=== PATIENT | female | born 1995 | race Caucasian/White ===

== ENCOUNTER 2017-08-09 06:57 | Emergency (ER) | payer SELFPAY ==
[~2017-08-09] VITALS: Ht 172.7 cm; Wt 117.9 kg
[~2017-08-09 06:57] MED LIST: Motrin,Rufen800 MG PO; Orphenadrine C100 MG PO; PEPCID20 MG PO; Zofran4 MG PO
[2017-08-09 07:34] LABS: BILIRUBIN NEGATIVE (NEGATIVE); BLOOD TRACE-INTACT (NEGATIVE); CLARITY CLEAR (CLEAR); COLOR YELLOW (YELLOW); GLUCOSE NEGATIVE (NEGATIVE); KETONE NEGATIVE (NEGATIVE); LEUKO ESTERASE NEGATIVE (NEGATIVE); NITRITE NEGATIVE (NEGATIVE); SPECIFIC GRAVITY <= 1.005 (1.005-1.030); UROBILINOGEN 0.2 E.U./dl (0.2-1.0)
[2017-08-09 07:39] LABS: BASO % 0.4 % (0.0-1.0); EOS # 0.1 10*3/uL (0.0-0.4); EOS % 1.7 % (1.0-4.0); HEMATOCRIT 37.4 % (37.0-47.0); HEMOGLOBIN 12.3 g/dl (12.0-16.0); LYMPH # 2.5 10*3/uL (1.3-4.4); LYMPH % 30.2 % (27.0-41.0); MEAN CELL VOLUME 84.2 fl (81.0-99.0); MEAN CORPUSCULAR HGB 27.7 pg (27.0-31.0); MEAN CORPUSCULAR HGB CONC 32.9 g/dl (33.0-37.0); MEAN PLATELET VOLUME 9.3 fl (9.6-12.3); MONO # 0.7 10*3/uL (0.1-1.0); MONO % 8.7 % (3.0-9.0); NEUT # 4.9 10*3/uL (2.3-7.9); NEUT % 58.8 % (47.0-73.0); PLATELET COUNT AUTOMATED 330 10*3/uL (130-400); RED BLOOD COUNT 4.44 10*6/uL (4.10-5.10); RED CELL DISTRI WIDTH 12.7 % (0-14.5); WHITE BLOOD COUNT 8.3 10*3/uL (4.8-10.8)
[2017-08-09 07:44] LABS: BACTERIA TRACE; WBC 0-2 wbc/hpf (0-5)
[2017-08-09 07:56] LABS: ALBUMIN 3.8 gm/dl (3.1-4.5); ALKALINE PHOSPHATASE 120 U/L (45-117); BUN 10 mg/dl (7-24); CHLORIDE 105 mmol/L (98-107); POTASSIUM 3.8 mmol/L (3.5-5.1); SGOT/AST 17 IU/L (3-35); SGPT/ALT 28 U/L (12-78); SODIUM 139 mmol/L (136-145); TOTAL PROTEIN 8.5 gm/dL (6.4-8.2)
[2017-08-09] MEDS ORDERED: Zofran4 MG PO (08:58)
== END 2017-08-09 10:12 | disposition home or self-care (01) ==
LOC: ED 06:57
PROVIDERS: Emergency Medicine
DX: B34.9 Viral infection, unspecified (principal); R11.2 Nausea with vomiting, unspecified; R42 Dizziness and giddiness; R50.9 Fever, unspecified

== ENCOUNTER 2017-11-14 15:32 | Emergency (ER) | payer OTHER ==
[~2017-11-14] VITALS: Wt 127.0 kg
[2017-11-14] MEDS ORDERED: PRAZOSIN HCL1 MG PO (15:38)
[2017-11-14] MEDS ORDERED: SERTRALINE HYDR50 MG PO (15:38)
[2017-11-14] MEDS ORDERED: TRAZODONE50 MG PO (15:39)
[2017-11-14 16:23] LABS: EOS % 0.3 % (1.0-4.0); HEMATOCRIT 35.7 % (37.0-47.0); HEMOGLOBIN 11.8 g/dl (12.0-16.0); LYMPH # 0.9 10*3/uL (1.3-4.4); LYMPH % 25.1 % (27.0-41.0); MEAN CORPUSCULAR HGB 27.4 pg (27.0-31.0); MEAN CORPUSCULAR HGB CONC 33.1 g/dl (33.0-37.0); MEAN PLATELET VOLUME 9.2 fl (9.6-12.3); MONO # 0.6 10*3/uL (0.1-1.0); MONO % 16.2 % (3.0-9.0); NEUT # 2.2 10*3/uL (2.3-7.9); NEUT % 58.1 % (47.0-73.0); PLATELET COUNT AUTOMATED 259 10*3/uL (130-400); RED CELL DISTRI WIDTH 12.7 % (0-14.5); WHITE BLOOD COUNT 3.7 10*3/uL (4.8-10.8)
[2017-11-14 16:39] LABS: ALBUMIN 3.7 gm/dl (3.1-4.5); ALKALINE PHOSPHATASE 107 U/L (45-117); BUN 9 mg/dl (7-24); CHLORIDE 105 mmol/L (98-107); CREATININE 0.75 mg/dL (0.55-1.02); POTASSIUM 3.6 mmol/L (3.5-5.1); SGOT/AST 22 IU/L (3-35); SGPT/ALT 28 U/L (12-78); SODIUM 136 mmol/L (136-145); TOTAL PROTEIN 8.3 gm/dL (6.4-8.2)
[2017-11-14 17:10] LABS: BILIRUBIN NEGATIVE (NEGATIVE); BLOOD NEGATIVE (NEGATIVE); CLARITY CLEAR (CLEAR); COLOR YELLOW (YELLOW); GLUCOSE NEGATIVE (NEGATIVE); KETONE NEGATIVE (NEGATIVE); LEUKO ESTERASE NEGATIVE (NEGATIVE); NITRITE NEGATIVE (NEGATIVE); PH 5.5 (5.0-9.0); SPECIFIC GRAVITY 1.025 (1.005-1.030); UROBILINOGEN 0.2 E.U./dl (0.2-1.0)
[2017-11-14 17:18] LABS: BACTERIA 1+; MUCOUS TRACE; RBC 0-2 rbc/hpf (0-2)
[2017-11-14] MEDS ORDERED: ZOFRAN ODT4 MG SL (17:47)
[2017-11-14] MEDS ORDERED: TAMIFLU 75MG CA75 MG PO (17:47)
== END 2017-11-14 17:51 | disposition home or self-care (01) ==
LOC: ED 15:32
PROVIDERS: Emergency Medicine
DX: K52.9 Noninfective gastroenteritis and colitis, unspecified (principal); J10.1 Influenza due to other identified influenza virus with other respiratory manifestations; Z79.899 Other long term (current) drug therapy

== ENCOUNTER 2018-01-14 06:16 | Emergency (ER) | payer OTHER ==
[~2018-01-14] VITALS: Ht 170.1 cm; Wt 119.3 kg
[~2018-01-14 06:16] MED LIST changes: +PRAZOSIN HCL1 MG PO; +SERTRALINE HYDR50 MG PO; +TAMIFLU 75MG CA75 MG PO; +TRAZODONE50 MG PO; +ZOFRAN ODT4 MG SL
[2018-01-14] MEDS ORDERED: Zofran4 MG SL (06:22)
== END 2018-01-14 06:44 | disposition home or self-care (01) ==
LOC: ED 06:16
DX: R11.2 Nausea with vomiting, unspecified (principal); R14.0 Abdominal distension (gaseous); Z79.899 Other long term (current) drug therapy

== ENCOUNTER → 2018-04-07 | Outpatient (CLI) | payer OTHER ==
[~2018-04-07] MED LIST changes: +Zofran4 MG SL
== END | disposition home or self-care (01) ==
LOC: US 15:43
DX: N93.9 Abnormal uterine and vaginal bleeding, unspecified (principal)

== ENCOUNTER 2018-08-25 11:25 | Emergency (ER) | payer OTHER ==
[~2018-08-25] VITALS: Ht 170.1 cm; Wt 124.7 kg
[2018-08-25 13:19] LABS: BASO % 0.3 % (0.0-1.0); EOS # 0.1 10*3/uL (0.0-0.4); EOS % 1.3 % (1.0-4.0); HEMATOCRIT 36.3 % (37.0-47.0); HEMOGLOBIN 11.6 g/dl (12.0-16.0); LYMPH # 2.6 10*3/uL (1.3-4.4); LYMPH % 25.2 % (27.0-41.0); MEAN CELL VOLUME 85.2 fl (81.0-99.0); MEAN CORPUSCULAR HGB 27.2 pg (27.0-31.0); MEAN PLATELET VOLUME 9.1 fl (9.6-12.3); MONO # 0.6 10*3/uL (0.1-1.0); MONO % 5.7 % (3.0-9.0); NEUT # 6.8 10*3/uL (2.3-7.9); NEUT % 67.2 % (47.0-73.0); PLATELET COUNT AUTOMATED 356 10*3/uL (130-400); RED BLOOD COUNT 4.26 10*6/uL (4.10-5.10); RED CELL DISTRI WIDTH 12.8 % (0-14.5); WHITE BLOOD COUNT 10.2 10*3/uL (4.8-10.8)
[2018-08-25 13:36] LABS: ALBUMIN 3.3 gm/dl (3.1-4.5); ALKALINE PHOSPHATASE 106 U/L (45-117); BUN 13 mg/dl (7-24); CHLORIDE 106 mmol/L (98-107); CREATININE 0.59 mg/dL (0.55-1.02); POTASSIUM 4.1 mmol/L (3.5-5.1); SGOT/AST 22 IU/L (3-35); SGPT/ALT 29 U/L (12-78); SODIUM 135 mmol/L (136-145); TOTAL PROTEIN 7.9 gm/dL (6.4-8.2)
[2018-08-25] MEDS ORDERED: ROBITUSSIN DM 105 ML PO (13:57)
[2018-08-25] MEDS ORDERED: PREDNISONE50 MG PO (13:57)
[2018-08-25] MEDS ORDERED: AUGMENTIN 875875 MG PO (13:57)
== END 2018-08-25 14:12 | disposition home or self-care (01) ==
LOC: ED 11:25
PROVIDERS: Nurse Practitioner Family
DX: J20.9 Acute bronchitis, unspecified (principal); Z79.899 Other long term (current) drug therapy

== ENCOUNTER 2018-10-29 18:16 | Emergency (ER) | payer OTHER ==
[~2018-10-29] VITALS: Ht 170.1 cm; Wt 129.7 kg
[~2018-10-29 18:16] MED LIST changes: +AUGMENTIN 875875 MG PO; +PREDNISONE50 MG PO; +ROBITUSSIN DM 105 ML PO
[2018-10-29 18:38] LABS: BASO % 0.3 % (0.0-1.0); EOS # 0.2 10*3/uL (0.0-0.4); HEMOGLOBIN 12.3 g/dl (12.0-16.0); LYMPH # 2.8 10*3/uL (1.3-4.4); LYMPH % 29.5 % (27.0-41.0); MEAN CELL VOLUME 82.4 fl (81.0-99.0); MEAN CORPUSCULAR HGB 26.7 pg (27.0-31.0); MEAN CORPUSCULAR HGB CONC 32.4 g/dl (33.0-37.0); MEAN PLATELET VOLUME 8.7 fl (9.6-12.3); MONO # 0.6 10*3/uL (0.1-1.0); MONO % 6.1 % (3.0-9.0); NEUT # 5.9 10*3/uL (2.3-7.9); NEUT % 61.8 % (47.0-73.0); PLATELET COUNT AUTOMATED 405 10*3/uL (130-400); RED BLOOD COUNT 4.61 10*6/uL (4.10-5.10); RED CELL DISTRI WIDTH 12.9 % (0-14.5); WHITE BLOOD COUNT 9.6 10*3/uL (4.8-10.8)
[2018-10-29 18:50] LABS: ACT PARTIAL THROMBO TIME 27.9 SECONDS (20.8-31.5)
[2018-10-29 18:52] LABS: ALBUMIN 3.5 gm/dl (3.1-4.5); ALKALINE PHOSPHATASE 101 U/L (45-117); BUN 13 mg/dl (7-24); CHLORIDE 107 mmol/L (98-107); CREATININE 0.75 mg/dL (0.55-1.02); LIPASE 92 U/L (73-393); POTASSIUM 3.5 mmol/L (3.5-5.1); SGOT/AST 21 IU/L (3-35); SGPT/ALT 25 U/L (12-78); SODIUM 137 mmol/L (136-145); TOTAL PROTEIN 8.4 gm/dL (6.4-8.2)
[2018-10-29 18:57] LABS: BILIRUBIN NEGATIVE (NEGATIVE); BLOOD TRACE-INTACT (NEGATIVE); CLARITY SL CLOUDY (CLEAR); COLOR YELLOW (YELLOW); GLUCOSE NEGATIVE (NEGATIVE); KETONE NEGATIVE (NEGATIVE); LEUKO ESTERASE NEGATIVE (NEGATIVE); NITRITE NEGATIVE (NEGATIVE); SPECIFIC GRAVITY 1.025 (1.005-1.030); UROBILINOGEN 0.2 E.U./dl (0.2-1.0)
[2018-10-29 19:02] LABS: BACTERIA 1+; MUCOUS 1+; RBC 0-2 rbc/hpf (0-2); WBC 0-2 wbc/hpf (0-5)
[2018-10-29] MEDS ORDERED: ANUSOL-HC25 MG R (21:52)
== END 2018-10-29 22:10 | disposition home or self-care (01) ==
LOC: ED 18:16
PROVIDERS: Nurse Practitioner Family
DX: K64.8 Other hemorrhoids (principal); Z79.2 Long term (current) use of antibiotics; Z79.899 Other long term (current) drug therapy

== ENCOUNTER 2018-12-28 22:59 | Emergency (ER) | payer OTHER ==
[~2018-12-28] VITALS: Ht 170.1 cm; Wt 127.5 kg
[~2018-12-28 22:59] MED LIST changes: +ANUSOL-HC25 MG R
[2018-12-29] MEDS ORDERED: AUGMENTIN 875-875 MG PO (00:27)
== END 2018-12-29 00:48 | disposition home or self-care (01) ==
LOC: ED 22:59
DX: J02.0 Streptococcal pharyngitis (principal); R11.2 Nausea with vomiting, unspecified; Z79.899 Other long term (current) drug therapy

== ENCOUNTER → 2019-02-15 | Outpatient (CLI) | payer OTHER ==
[~2019-02-15] MED LIST changes: +AUGMENTIN 875-875 MG PO; +HYDROCHLOROTHIA25 M1 PO; +LEVOTHYROXINE50 MCG PO; +LEXAPRO20 MG PO; +SEPTDS PO
== END | disposition home or self-care (01) ==
LOC: D 13:45
DX: E78.5 Hyperlipidemia, unspecified (principal); R63.4 Abnormal weight loss

== ENCOUNTER 2019-04-14 21:49 | Emergency (ER) | payer OTHER ==
[~2019-04-14] VITALS: Ht 170.1 cm; Wt 129.3 kg
[~2019-04-14 21:49] MED LIST changes: -HYDROCHLOROTHIA25 M1 PO; -LEVOTHYROXINE50 MCG PO; -LEXAPRO20 MG PO; -SEPTDS PO
[2019-04-14] MEDS ORDERED: LEXAPRO20 MG PO (22:12)
[2019-04-14] MEDS ORDERED: HYDROCHLOROTHIA25 M1 PO (22:13)
[2019-04-14] MEDS ORDERED: LEVOTHYROXINE50 MCG PO (22:14)
[2019-04-14 22:35] LABS: BASO % 0.1 % (0.0-1.0); EOS % 0.1 % (1.0-4.0); HEMATOCRIT 37.2 % (37.0-47.0); HEMOGLOBIN 11.7 g/dl (12.0-16.0); LYMPH % 14.1 % (27.0-41.0); MEAN CELL VOLUME 85.3 fl (81.0-99.0); MEAN CORPUSCULAR HGB 26.8 pg (27.0-31.0); MEAN CORPUSCULAR HGB CONC 31.5 g/dl (33.0-37.0); MEAN PLATELET VOLUME 9.3 fl (9.6-12.3); MONO # 0.8 10*3/uL (0.1-1.0); MONO % 11.1 % (3.0-9.0); NEUT # 5.2 10*3/uL (2.3-7.9); NEUT % 74.3 % (47.0-73.0); PLATELET COUNT AUTOMATED 292 10*3/uL (130-400); RED BLOOD COUNT 4.36 10*6/uL (4.10-5.10); RED CELL DISTRI WIDTH 13.5 % (0-14.5)
[2019-04-14 22:52] LABS: ALBUMIN 3.4 gm/dl (3.1-4.5); ALKALINE PHOSPHATASE 98 U/L (45-117); BUN 9 mg/dl (7-24); CHLORIDE 107 mmol/L (98-107); CREATININE 0.82 mg/dL (0.55-1.02); LIPASE 72 U/L (73-393); POTASSIUM 3.6 mmol/L (3.5-5.1); SGOT/AST 16 IU/L (3-35); SGPT/ALT 23 U/L (12-78); SODIUM 137 mmol/L (136-145); TOTAL PROTEIN 7.8 gm/dL (6.4-8.2)
[2019-04-14 23:30] LABS: BILIRUBIN NEGATIVE (NEGATIVE); BLOOD NEGATIVE (NEGATIVE); CLARITY CLOUDY (CLEAR); COLOR YELLOW (YELLOW); GLUCOSE NEGATIVE (NEGATIVE); KETONE TRACE (NEGATIVE); LEUKO ESTERASE TRACE (NEGATIVE); NITRITE NEGATIVE (NEGATIVE); UROBILINOGEN 0.2 E.U./dl (0.2-1.0)
[2019-04-14 23:36] LABS: BACTERIA 2+; MUCOUS 1+; RBC 0-2 rbc/hpf (0-2)
[2019-04-15] MEDS ORDERED: SEPTDS PO (00:29)
== END 2019-04-15 00:50 | disposition home or self-care (01) ==
LOC: ED 21:49
PROVIDERS: Nurse Practitioner Family
DX: N39.0 Urinary tract infection, site not specified (principal); H66.93 Otitis media, unspecified, bilateral; J02.9 Acute pharyngitis, unspecified; R42 Dizziness and giddiness; R11.2 Nausea with vomiting, unspecified; Z79.899 Other long term (current) drug therapy

== ENCOUNTER 2019-07-14 22:29 | Emergency (ER) | payer OTHER ==
[~2019-07-14] VITALS: Ht 170.1 cm; Wt 126.1 kg
[~2019-07-14 22:29] MED LIST changes: +HYDROCHLOROTHIA25 M1 PO; +LEVOTHYROXINE50 MCG PO; +LEXAPRO20 MG PO; +SEPTDS PO
[2019-07-14] MEDS ORDERED: ANUSOL HC30 GM PO (22:40)
== END 2019-07-14 22:42 | disposition home or self-care (01) ==
LOC: ED 22:29
DX: K64.4 Residual hemorrhoidal skin tags (principal); Z88.2 Allergy status to sulfonamides; Z79.899 Other long term (current) drug therapy

== ENCOUNTER 2020-02-21 17:00 | Emergency (ER) | payer OTHER ==
[~2020-02-21 17:00] MED LIST changes: +ANUSOL HC30 GM PO
== END 2020-02-21 19:40 | disposition home or self-care (01) ==
LOC: ED 17:00
DX: S39.012A Strain of muscle, fascia and tendon of lower back, initial encounter (principal); S90.32XA Contusion of left foot, initial encounter; F32.9 Major depressive disorder, single episode, unspecified; Z79.899 Other long term (current) drug therapy; Z79.2 Long term (current) use of antibiotics; W10.8XXA Fall (on) (from) other stairs and steps, initial encounter; Y93.89 Activity, other specified; Y92.89 Other specified places as the place of occurrence of the external cause; Y99.8 Other external cause status

== ENCOUNTER 2020-09-03 15:57 | Emergency (ER) | payer OTHER ==
[~2020-09-03] VITALS: Ht 170.1 cm; Wt 144.2 kg
== END 2020-09-03 17:06 | disposition home or self-care (01) ==
LOC: ED 15:57
DX: S61.411A Laceration without foreign body of right hand, initial encounter (principal); Z79.899 Other long term (current) drug therapy; W25.XXXA Contact with sharp glass, initial encounter; Y93.89 Activity, other specified; Y92.89 Other specified places as the place of occurrence of the external cause; Y99.8 Other external cause status

== ENCOUNTER 2020-09-21 20:54 | Emergency (ER) | payer OTHER | END 2020-09-21 23:00 | disposition home or self-care (01) | LOC: ED 20:54 | DX: S83.92XA Sprain of unspecified site of left knee, initial encounter (principal); S30.0XXA Contusion of lower back and pelvis, initial encounter; Z79.899 Other long term (current) drug therapy; X58.XXXA Exposure to other specified factors, initial encounter; Y93.89 Activity, other specified; Y92.89 Other specified places as the place of occurrence of the external cause; Y99.8 Other external cause status ==

== ENCOUNTER 2021-05-09 00:42 | Emergency (ER) | payer OTHER ==
[2021-05-09 01:26] LABS: BASO % 0.2 % (0.0-1.0); EOS # 0.1 10*3/uL (0.0-0.4); EOS % 0.9 % (1.0-4.0); HEMATOCRIT 39.3 % (37.0-47.0); LYMPH # 1.5 10*3/uL (1.3-4.4); MEAN CELL VOLUME 82.2 fl (81.0-99.0); MEAN CORPUSCULAR HGB 25.3 pg (27.0-31.0); MEAN CORPUSCULAR HGB CONC 30.8 g/dl (33.0-37.0); MEAN PLATELET VOLUME 9.3 fl (9.6-12.3); MONO # 0.6 10*3/uL (0.1-1.0); MONO % 5.5 % (3.0-9.0); NEUT # 8.5 10*3/uL (2.3-7.9); NEUT % 79.1 % (47.0-73.0); PLATELET COUNT AUTOMATED 380 10*3/uL (130-400); RED BLOOD COUNT 4.78 10*6/uL (4.10-5.10); RED CELL DISTRI WIDTH 14.2 % (0-14.5); WHITE BLOOD COUNT 10.7 10*3/uL (4.8-10.8)
[2021-05-09 01:41] LABS: ALBUMIN 3.6 gm/dl (3.1-4.5); ALKALINE PHOSPHATASE 100 U/L (45-117); BUN 8 mg/dl (7-24); CHLORIDE 107 mmol/L (98-107); CREATININE 0.92 mg/dL (0.55-1.02); POTASSIUM 3.6 mmol/L (3.5-5.1); SGOT/AST 23 IU/L (3-35); SGPT/ALT 37 U/L (12-78); SODIUM 138 mmol/L (136-145); TOTAL PROTEIN 8.5 gm/dL (6.4-8.2)
[2021-05-09] MEDS ORDERED: 'zithromax250 MG PO (03:28)
== END 2021-05-09 05:07 | disposition home or self-care (01) ==
LOC: ED 00:42
PROVIDERS: Emergency Medicine
DX: B34.9 Viral infection, unspecified (principal); J18.9 Pneumonia, unspecified organism; R11.2 Nausea with vomiting, unspecified; Z79.899 Other long term (current) drug therapy

== ENCOUNTER 2021-05-14 15:36 | Emergency (ER) | payer OTHER ==
[~2021-05-14] VITALS: Ht 170.1 cm; Wt 149.7 kg
[~2021-05-14 15:36] MED LIST changes: +'zithromax250 MG PO
[2021-05-14 16:37] LABS: ALBUMIN 3.3 gm/dl (3.1-4.5); ALKALINE PHOSPHATASE 79 U/L (45-117); BUN 7 mg/dl (7-24); CHLORIDE 99 mmol/L (98-107); CREATININE 0.96 mg/dL (0.55-1.02); SGOT/AST 199 IU/L (3-35); SGPT/ALT 236 U/L (12-78); SODIUM 131 mmol/L (136-145); TOTAL PROTEIN 8.3 gm/dL (6.4-8.2)
[2021-05-14] MEDS ORDERED: ZOFRAN4 MG SL (18:29)
== END 2021-05-14 19:14 | disposition home or self-care (01) ==
LOC: ED 15:36
PROVIDERS: Student in an Organized Health Care Education/Training Program
DX: U07.1 COVID-19 (principal); A08.39 Other viral enteritis; Z20.822 Contact with and (suspected) exposure to COVID-19; Z79.899 Other long term (current) drug therapy

== ENCOUNTER 2021-08-06 12:54 | Emergency (ER) | payer OTHER ==
[~2021-08-06] VITALS: Ht 170.1 cm; Wt 141.1 kg
[~2021-08-06 12:54] MED LIST changes: +ZOFRAN4 MG SL
[2021-08-06 14:21] LABS: BASO % 0.2 % (0.0-1.0); EOS # 0.1 10*3/uL (0.0-0.4); EOS % 1.2 % (1.0-4.0); HEMATOCRIT 38.2 % (37.0-47.0); LYMPH # 2.4 10*3/uL (1.3-4.4); LYMPH % 22.8 % (27.0-41.0); MEAN CELL VOLUME 84.1 fl (81.0-99.0); MEAN CORPUSCULAR HGB 26.7 pg (27.0-31.0); MEAN CORPUSCULAR HGB CONC 31.7 g/dl (33.0-37.0); MEAN PLATELET VOLUME 9.2 fl (9.6-12.3); MONO # 0.7 10*3/uL (0.1-1.0); MONO % 6.3 % (3.0-9.0); NEUT # 7.2 10*3/uL (2.3-7.9); NEUT % 69.2 % (47.0-73.0); PLATELET COUNT AUTOMATED 409 10*3/uL (130-400); RED BLOOD COUNT 4.54 10*6/uL (4.10-5.10); RED CELL DISTRI WIDTH 13.9 % (0-14.5); WHITE BLOOD COUNT 10.4 10*3/uL (4.8-10.8)
[2021-08-06 14:21] LABS: BILIRUBIN Negative (Negative); BLOOD 3+ (Negative); CLARITY Cloudy (Clear); COLOR Yellow (Yellow); GLUCOSE Negative (Negative); KETONE Trace (Negative); LEUKO ESTERASE Negative (Negative); NITRITE Negative (Negative); SPECIFIC GRAVITY >= 1.030 (1.001-1.030)
[2021-08-06 14:45] LABS: BACTERIA 1+; EPITHELIAL CELLS 21-30
[2021-08-06 14:45] LABS: ALBUMIN 3.2 gm/dl (3.1-4.5); ALKALINE PHOSPHATASE 97 U/L (45-117); BUN 9 mg/dl (7-24); CHLORIDE 106 mmol/L (98-107); CREATININE 0.75 mg/dL (0.55-1.02); POTASSIUM 3.7 mmol/L (3.5-5.1); SGOT/AST 19 IU/L (3-35); SGPT/ALT 33 U/L (12-78); SODIUM 139 mmol/L (136-145); TOTAL PROTEIN 7.9 gm/dL (6.4-8.2)
[2021-08-06 14:47] LABS: B-hCG (QUALITATIVE) NEGATIVE (NEGATIVE)
== END 2021-08-06 17:07 | disposition home or self-care (01) ==
LOC: ED 12:54
PROVIDERS: Physician Assistant
DX: N93.8 Other specified abnormal uterine and vaginal bleeding (principal); Z79.899 Other long term (current) drug therapy

== ENCOUNTER → 2021-08-17 | Outpatient (CLI) | payer OTHER | END | disposition home or self-care (01) | LOC: US 13:16 | PROVIDERS: ATTEND Nurse Practitioner Women's Health | DX: M25.562 Pain in left knee (principal); N93.9 Abnormal uterine and vaginal bleeding, unspecified ==

== ENCOUNTER 2022-03-11 20:22 | Emergency (ER) | payer OTHER ==
[~2022-03-11] VITALS: Ht 170.1 cm; Wt 149.7 kg
[2022-03-11] MEDS ORDERED: TRAZODONE100 MG PO (21:10)
[2022-03-11] MEDS ORDERED: DIVALPROEX SOD500 MG PO (21:10)
[2022-03-11] MEDS ORDERED: ABILIFY MAINTE400 MG IM (21:10)
[2022-03-11] MEDS ORDERED: BUSPIRONE HCL10 MG PO (21:10)
[2022-03-11 22:28] LABS: BASO % 0.2 % (0.0-1.0); EOS # 0.1 10*3/uL (0.0-0.4); EOS % 0.9 % (1.0-4.0); HEMATOCRIT 35.8 % (37.0-47.0); LYMPH # 3.5 10*3/uL (1.3-4.4); LYMPH % 27.8 % (27.0-41.0); MEAN CELL VOLUME 82.9 fl (81.0-99.0); MEAN CORPUSCULAR HGB 26.2 pg (27.0-31.0); MEAN CORPUSCULAR HGB CONC 31.6 g/dl (33.0-37.0); MEAN PLATELET VOLUME 9.4 fl (9.6-12.3); MONO # 0.6 10*3/uL (0.1-1.0); MONO % 4.5 % (3.0-9.0); NEUT # 8.5 10*3/uL (2.3-7.9); NEUT % 66.3 % (47.0-73.0); PLATELET COUNT AUTOMATED 356 10*3/uL (130-400); RED BLOOD COUNT 4.32 10*6/uL (4.10-5.10); RED CELL DISTRI WIDTH 13.7 % (0-14.5); WHITE BLOOD COUNT 12.7 10*3/uL (4.8-10.8)
[2022-03-11 22:56] LABS: ALKALINE PHOSPHATASE 97 U/L (45-117); BUN 13 mg/dl (7-24); CHLORIDE 109 mmol/L (98-107); POTASSIUM 3.8 mmol/L (3.5-5.1); SGOT/AST 7 IU/L (3-35); SGPT/ALT 26 U/L (12-78); SODIUM 140 mmol/L (136-145); TOTAL PROTEIN 6.9 gm/dL (6.4-8.2)
[2022-03-11 22:58] LABS: BILIRUBIN Negative (Negative); BLOOD Negative (Negative); CLARITY Clear (Clear); COLOR Yellow (Yellow); GLUCOSE Negative (Negative); KETONE Negative (Negative); LEUKO ESTERASE Negative (Negative); NITRITE Negative (Negative); SPECIFIC GRAVITY 1.025 (1.001-1.030)
[2022-03-11 23:19] LABS: BACTERIA TRACE; RBC 0-2 rbc/hpf (0-2)
[2022-03-12] MEDS ORDERED: MEDI-MECLIZINE25 MG PO (00:10)
== END 2022-03-12 00:07 | disposition home or self-care (01) ==
LOC: ED 20:22
PROVIDERS: Emergency Medicine
DX: R42 Dizziness and giddiness (principal); Z91.030 Bee allergy status; Z79.899 Other long term (current) drug therapy

== ENCOUNTER 2022-12-25 15:25 | Emergency (ER) | payer OTHER ==
[~2022-12-25] VITALS: Ht 170.1 cm; Wt 145.1 kg
[~2022-12-25 15:25] MED LIST changes: +ABILIFY MAINTE400 MG IM; +BUSPIRONE HCL10 MG PO; +DIVALPROEX SOD500 MG PO; +MEDI-MECLIZINE25 MG PO; +TRAZODONE100 MG PO
[2022-12-25 18:35] LABS: BASO % 0.3 % (0.0-1.0); EOS # 0.1 10*3/uL (0.0-0.4); EOS % 0.5 % (1.0-4.0); HEMATOCRIT 38.1 % (37.0-47.0); LYMPH # 2.9 10*3/uL (1.3-4.4); LYMPH % 18.9 % (27.0-41.0); MEAN CELL VOLUME 84.5 fl (81.0-99.0); MEAN CORPUSCULAR HGB 26.8 pg (27.0-31.0); MEAN CORPUSCULAR HGB CONC 31.8 g/dl (33.0-37.0); MEAN PLATELET VOLUME 8.7 fl (9.6-12.3); MONO # 0.6 10*3/uL (0.1-1.0); MONO % 4.2 % (3.0-9.0); NEUT # 11.5 10*3/uL (2.3-7.9); NEUT % 75.7 % (47.0-73.0); PLATELET COUNT AUTOMATED 440 10*3/uL (130-400); RED BLOOD COUNT 4.51 10*6/uL (4.10-5.10); RED CELL DISTRI WIDTH 13.4 % (0-14.5); WHITE BLOOD COUNT 15.2 10*3/uL (4.8-10.8)
[2022-12-25 18:53] LABS: ALKALINE PHOSPHATASE 95 U/L (46-116); BUN 7 mg/dl (9-23); CHLORIDE 106 mmol/L (98-107); LIPASE 25 U/L (12-53); POTASSIUM 3.6 mmol/L (3.4-5.1); SGPT/ALT 17 U/L (10-49); TOTAL PROTEIN 7.9 gm/dL (6.0-8.0)
[2022-12-25 19:11] LABS: BILIRUBIN Negative (Negative); BLOOD Negative (Negative); CLARITY Clear (Clear); COLOR Yellow (Yellow); GLUCOSE Negative (Negative); KETONE Negative (Negative); LEUKO ESTERASE Negative (Negative); NITRITE Negative (Negative); PH 5.5 (4.5-8.0); SPECIFIC GRAVITY 1.025 (1.001-1.030); UROBILINOGEN 0.2 E.U./dl (0.0-1.0)
[2022-12-25 19:22] LABS: EPITHELIAL CELLS 16-20; MUCOUS 1+
== END 2022-12-25 22:02 | disposition home or self-care (01) ==
LOC: ED 15:25
PROVIDERS: Physician Assistant
DX: R10.9 Unspecified abdominal pain (principal); R50.9 Fever, unspecified; J45.909 Unspecified asthma, uncomplicated; F31.9 Bipolar disorder, unspecified; Z91.030 Bee allergy status; Z91.018 Allergy to other foods

== ENCOUNTER → 2023-03-15 | Outpatient (CLI) | payer OTHER | END | disposition home or self-care (01) | LOC: US 08:19 | PROVIDERS: ATTEND Physical Therapist | DX: N94.9 Unspecified condition associated with female genital organs and menstrual cycle (principal) ==

== ENCOUNTER → 2023-04-17 | Day surgery (SDC) | payer OTHER ==
[~2023-04-17] VITALS: Ht 170.1 cm; Wt 130.6 kg
[~2023-04-17] MED LIST changes: +PROTONIX40 MG PO
[2023-04-17 08:54] VITALS: BP 122/59
[2023-04-17 10:34] VITALS: BP 116/74
[2023-04-17 10:49] VITALS: BP 121/70
[2023-04-17 10:58] VITALS: BP 113/74
== END ==
LOC: SDC 04-14 13:15
PROVIDERS: ATTEND Surgery
DX: R19.7 Diarrhea, unspecified (principal); R19.5 Other fecal abnormalities; R11.2 Nausea with vomiting, unspecified; K29.50 Unspecified chronic gastritis without bleeding; E78.00 Pure hypercholesterolemia, unspecified; K21.9 Gastro-esophageal reflux disease without esophagitis; G43.909 Migraine, unspecified, not intractable, without status migrainosus; J45.909 Unspecified asthma, uncomplicated; F41.9 Anxiety disorder, unspecified; F32.A Depression, unspecified; Z98.890 Other specified postprocedural states

== ENCOUNTER 2023-09-22 00:07 | Emergency (ER) | payer OTHER ==
[~2023-09-22] VITALS: Ht 170.1 cm; Wt 128.4 kg
[2023-09-22] MEDS ORDERED: VRAYLAR1.5 MG PO (00:21)
[2023-09-22] MEDS ORDERED: MELOXICAM15 MG PO (00:28)
[2023-09-22] MEDS ORDERED: AMOX-CLAV 875-1 EACH PO (00:28)
== END 2023-09-22 00:58 | disposition home or self-care (01) ==
LOC: ED 00:07
DX: K02.9 Dental caries, unspecified (principal); K04.7 Periapical abscess without sinus; F31.9 Bipolar disorder, unspecified; K21.9 Gastro-esophageal reflux disease without esophagitis; J45.909 Unspecified asthma, uncomplicated; Z91.030 Bee allergy status; Z88.8 Allergy status to other drugs, medicaments and biological substances

== ENCOUNTER 2023-12-01 19:14 | Emergency (ER) | payer MEDICARE, MEDICAID ==
[~2023-12-01] VITALS: Ht 170.1 cm; Wt 90.7 kg
[~2023-12-01 19:14] MED LIST changes: +AMOX-CLAV 875-1 EACH PO; +MELOXICAM15 MG PO; +VRAYLAR1.5 MG PO
[2023-12-01] MEDS ORDERED: DEBROX15 ML OT (19:34)
== END 2023-12-01 19:57 | disposition home or self-care (01) ==
LOC: ED 19:14
DX: H61.21 Impacted cerumen, right ear (principal); J45.909 Unspecified asthma, uncomplicated; F31.9 Bipolar disorder, unspecified; K21.9 Gastro-esophageal reflux disease without esophagitis; Z91.030 Bee allergy status; Z88.8 Allergy status to other drugs, medicaments and biological substances

== ENCOUNTER 2023-12-18 14:27 | Emergency (ER) | payer OTHER, MEDICAID ==
[~2023-12-18] VITALS: Ht 170.1 cm; Wt 140.6 kg
[~2023-12-18 14:27] MED LIST changes: +DEBROX15 ML OT
[2023-12-18] MEDS ORDERED: SODIUM CHLORIDE 0.9% 1,000 ML IV ONE (14:50)
[2023-12-18] MEDS ORDERED: Ondansetron Hydrochloride 4 MG/2 ML VIAL IV ONE (14:50)
[2023-12-18 15:15] LABS: BASO % 0.3 % (0.0-1.0); EOS # 0.2 10*3/uL (0.0-0.4); EOS % 1.4 % (1.0-4.0); HEMATOCRIT 39.1 % (37.0-47.0); LYMPH # 2.9 10*3/uL (1.3-4.4); LYMPH % 23.4 % (27.0-41.0); MEAN CELL VOLUME 81.6 fl (81.0-99.0); MEAN CORPUSCULAR HGB 25.9 pg (27.0-31.0); MEAN CORPUSCULAR HGB CONC 31.7 g/dl (33.0-37.0); MEAN PLATELET VOLUME 9.2 fl (9.6-12.3); MONO # 0.8 10*3/uL (0.1-1.0); MONO % 6.7 % (3.0-9.0); NEUT # 8.4 10*3/uL (2.3-7.9); NEUT % 67.8 % (47.0-73.0); PLATELET COUNT AUTOMATED 416 10*3/uL (130-400); RED BLOOD COUNT 4.79 10*6/uL (4.10-5.10); RED CELL DISTRI WIDTH 13.6 % (0-14.5); WHITE BLOOD COUNT 12.4 10*3/uL (4.8-10.8)
[2023-12-18 15:35] LABS: BUN 13 mg/dl (9-23); CHLORIDE 103 mmol/L (98-107); POTASSIUM 3.6 mmol/L (3.4-5.1)
[2023-12-18 15:49] LABS: BILIRUBIN Negative (Negative); BLOOD Negative (Negative); CLARITY Clear (Clear); COLOR Yellow (Yellow); GLUCOSE Negative (Negative); KETONE Trace (Negative); LEUKO ESTERASE Negative (Negative); NITRITE Negative (Negative); SPECIFIC GRAVITY >= 1.030 (1.001-1.030)
[2023-12-18 16:19] LABS: EPITHELIAL CELLS 21-30; FINE GRANULAR CAST 0-2; MUCOUS 2+; RBC 0-2 rbc/hpf (0-2)
[2023-12-18] MEDS ORDERED: AMOXICILLIN500 M3 PO (18:10)
[2023-12-18] MEDS ORDERED: AMOXICILLIN 500 MG CAP PO ONE (18:10)
[2023-12-18] MEDS ORDERED: ONDANSETRON4 MG SL (18:10)
== END 2023-12-18 18:30 | disposition home or self-care (01) ==
LOC: ED 14:27
PROVIDERS: Nurse Practitioner Family
DX: J01.90 Acute sinusitis, unspecified (principal); Z20.822 Contact with and (suspected) exposure to COVID-19; R11.2 Nausea with vomiting, unspecified; R19.7 Diarrhea, unspecified; R63.0 Anorexia; J45.909 Unspecified asthma, uncomplicated; F31.9 Bipolar disorder, unspecified; K21.9 Gastro-esophageal reflux disease without esophagitis; Z68.1 Body mass index [BMI] 19.9 or less, adult; Z91.030 Bee allergy status; Z91.018 Allergy to other foods